=== PATIENT | male | born 1985 | race Caucasian/White ===

== ENCOUNTER 2022-12-29 08:31 | Emergency (ER) | payer BC, OTHER ==
[2022-12-29] MEDS ORDERED: HYDROcodone/Acetaminophen 5/325 mg Tablet ONE (09:36)
== END 2022-12-29 11:12 | disposition home or self-care (01) ==
LOC: CSHERS 08:31
DX: S33.5XXA Sprain of ligaments of lumbar spine, initial encounter (principal); S43.402A Unspecified sprain of left shoulder joint, initial encounter; V89.2XXA Person injured in unspecified motor-vehicle accident, traffic, initial encounter; Y92.410 Unspecified street and highway as the place of occurrence of the external cause
CPT/HCPCS: 72131

== ENCOUNTER 2023-01-31 04:41 | Emergency (ER) | payer OTHER, BC ==
[2023-01-31] MEDS ORDERED: Orphenadrine Citrate 60 MG/2 ML VIAL IM SCH (05:15)
[2023-01-31] MEDS ORDERED: Dexamethasone 10 MG/ML VIAL ONE (05:21)
[2023-01-31] MEDS ORDERED: Ketorolac Tromethamine 30 MG/ML VIAL ONE (05:22)
== END 2023-01-31 06:10 | disposition home or self-care (01) ==
LOC: CSHERS 04:41
DX: M54.50 Low back pain, unspecified (principal); F17.210 Nicotine dependence, cigarettes, uncomplicated; V89.2XXA Person injured in unspecified motor-vehicle accident, traffic, initial encounter
CPT/HCPCS: 96372; 99283; J1100; J1885; J2360